=== PATIENT | male | born 1990 ===

== ENCOUNTER 2016-10-12 15:28 | Inpatient (IN) | payer OTHER ==
[2016-10-12] MEDS ORDERED: SODIUM CHLORIDE 0.9% 1000 ML INFUS.BAG IV ONE (16:02)
--- NOTE | 2016-10-12 16:05 | PDOC ---
History of Present Illness <TrinidadcelineDara - Last Filed: 10/12/16 16:02> - General History Source: Patient Exam Limitations: No Limitations - History of Present Illness Initial Comments: 10/12/16 16:05 The patient is a 26 year old male with no significant past medical history, presenting to the Emergency Department with lower abdominal pain for 2 days. The patient describes the pain as at his right lower quadrant, nonradiating and sharp, 7-8/10 in intensity. He reports that the pain began two days ago and has been persistent since onset. He denies previously having similar pain in his abdomen. He denies any recent trauma. He denies any symptoms other than the RLQ pain. The patient denies fevers, chills, and cough. Patient denies nausea, vomiting, and diarrhea. Patient denies testicular pain, and dysuria. Patient denies chest pain, palpitations, and shortness of breath. PCP: Dr. Holm <Love Esteban - Last Filed: 10/12/16 16:05> <Nicole Lujan - Last Filed: 10/12/16 19:58> - General Chief Complaint: Pain Stated Complaint: ABDOMINAL PAIN Past History - Psycho/Social/Smoking Cessation Hx Suicidal Ideation: No Smoking History: Never smoked Information on smoking cessation initiated: No <Dara Maxwell - Last Filed: 10/12/16 16:02> <Love Esteban - Last Filed: 10/12/16 16:05> <Nicole Lujan - Last Filed: 10/12/16 19:58> - Past Medical History Allergies/Adverse Reactions: Allergies Allergy/AdvReac Type Severity Reaction Status Date / Time No Known Allergies Allergy Verified 10/12/16 15:33 Home Medications: Ambulatory Orders NK [No Known Home Medication] 10/12/16 Review of Systems - Review of Systems Able to Perform ROS?: Yes Comments:: 10/12/16 16:06 CONSTITUTIONAL: Absent: fever, chills, diaphoresis, generalized weakness, malaise, loss of appetite HEENT: Absent: rhinorrhea, nasal congestion, throat pain, throat swelling, difficulty swallowing, mouth swelling, ear pain, eye pain, visual Changes CARDIOVASCULAR: Absent: chest pain, syncope, palpitations, irregular heart rate, lightheadedness , peripheral edema RESPIRATORY: Absent: cough, shortness of breath, dyspnea with exertion, orthopnea, wheezing, stridor, hemoptysis GASTROINTESTINAL: Present: + RLQ abdominal pain Absent: abdominal distension, nausea, vomiting, diarrhea, constipation, melena, hematochezia GENITOURINARY: Absent: dysuria, frequency, urgency, hesitancy, hematuria, flank pain, genital pain MUSCULOSKELETAL: Absent: myalgia, arthralgia, joint swelling SKIN: Absent: rash, itching, pallor HEMATOLOGIC/IMMUNOLOGIC: Absent: easy bleeding, easy bruising, lymphadenopathy, frequent infections ENDOCRINE: Absent: unexplained weight gain, unexplained weight loss, heat intolerance, cold intolerance NEUROLOGIC: Absent: headache, focal weakness or paresthesias, dizziness, unsteady gait, seizure, mental status changes, bladder or bowel incontinence PSYCHIATRIC: Absent: anxiety, depression, suicidal or homicidal ideation, hallucinations. <Love Esteban - Last Filed: 10/12/16 16:05> *Physical Exam - Vital Signs Last Vital Signs Temp Pulse Resp BP Pulse Ox 98 F 79 18 131/73 98 10/12/16 15:29 10/12/16 15:29 10/12/16 15:29 10/12/16 15:29 10/12/16 15:29 <Dara Maxwell - Last Filed: 10/12/16 16:02> - Vital Signs Last Vital Signs Temp Pulse Resp BP Pulse Ox 98 F 79 18 131/73 98 10/12/16 15:29 10/12/16 15:29 10/12/16 15:29 10/12/16 15:29 10/12/16 15:29 - Physical Exam Comments: 10/12/16 16:06 GENERAL: Well developed, well nourished. Awake and alert. In no acute distress. HEENT: Normocephalic, atraumatic. PERRLA, EOMI. No conjunctival pallor. Sclera are non- icteric. Moist mucous membranes. Oropharynx is clear. NECK: Supple. Full ROM. No JVD. Carotid pulses 2+ and symmetric, without bruits. No thyromegaly. No lymphadenopathy. CARDIOVASCULAR: Regular rate and rhythm. No murmurs, rubs, or gallops. Distal pulses are 2+ and symmetric. PULMONARY: No evidence of respiratory distress. Lungs clear to auscultation bilaterally. No wheezing, rales or rhonchi. ABDOMINAL: RLQ tenderness to palpation, no rebound, no guarding. No palpable hernia. Soft. Non-distended. No organomegaly. Normoactive bowel sounds. MUSCULOSKELETAL Normal range of motion at all joints. No bony deformities or tenderness. No CVA tenderness. EXTREMITIES: No cyanosis. No clubbing. No edema. No calf tenderness. SKIN: Warm and dry. Normal capillary refill. No rashes. No jaundice. NEUROLOGICAL: Alert, awake, appropriate. Cranial nerves 2-12 intact. No deficits to light touch and temperature in face, upper extremities and lower extremities. No motor deficits in the in face, upper extremities and lower extremities. Normoreflexic in the upper and lower extremities. Normal speech. Toes are downgoing bilaterally. PSYCHIATRIC: Cooperative. Good eye contact. Appropriate mood and affect. <Love Esteban - Last Filed: 10/12/16 16:05> - Vital Signs Last Vital Signs Temp Pulse Resp BP Pulse Ox 98 F 79 18 131/73 98 10/12/16 15:29 10/12/16 15:29 10/12/16 15:29 10/12/16 15:29 10/12/16 15:29 <Nicole Lujan - Last Filed: 10/12/16 19:58> ED Treatment Course - RADIOLOGY Radiology Studies Ordered: Category Date Time Status ABDOMEN & PELVIS CT WITH CONTR [CT] Stat CT Scan 10/12/16 16:02 Ordered <Dara Maxwell - Last Filed: 10/12/16 16:02> - LABORATORY CBC & Chemistry Diagram: 10/12/16 16:00 10/12/16 16:00 - ADDITIONAL ORDERS Additional order review: Laboratory Results 10/12/16 10/12/16 16:00 16:00 Sodium 139 Potassium 5.2 H Chloride 102 Carbon Dioxide 32 Anion Gap 5 L BUN 16 Creatinine 1.1 Creat Clearance w eGFR > 60 Random Glucose 84 Calcium 9.4 Total Bilirubin 0.8 AST 16 ALT 21 Alkaline Phosphatase 84 Total Protein 7.9 Albumin 4.3 Urine Color Yellow Urine Appearance Clear Urine pH 6.0 Urine Protein Negative Urine Glucose (UA) Negative Urine Ketones Negative Urine Blood Negative Urine Nitrite Negative Urine Bilirubin Negative Urine Urobilinogen Negative Ur Leukocyte Esterase Negative 10/12/16 16:00 RBC 5.29 MCV 83.7 MCHC 33.4 RDW 13.5 MPV 7.8 Neutrophils % 53.1 Lymphocytes % 33.7 Monocytes % 11.5 H Eosinophils % 1.1 Basophils % 0.6 - Medications Given in the ED: ED Medications Discontinued Medications Generic Name Dose Route Start Last Admin Trade Name Tejas PRN Reason Stop Dose Admin Sodium Chloride 1,000 ml 10/12/16 16:02 10/12/16 16:11 Normal Saline - IV 10/12/16 16:03 1,000 ml ONCE ONE Administration <Nicole Lujan - Last Filed: 10/12/16 19:58> Medical Decision Making - Medical Decision Making 10/12/16 16:02 26 yo male wtih no pmhx here wtih c/o lower abd pain. started 2 days ago. denies n/v no fever or chills. no testicular pain . no urinary complaints. no trauma. no mod factors. pain moderate 7 - 8 / 10. on exam mild RLQ TTP. no rebound no guard. skin warm and dry. differential uti, appendicitis, pyelo, epiploic apendigitis, muscle strain. <Dara Maxwell - Last Filed: 10/12/16 16:02> - Medical Decision Making 10/12/16 19:42 I received pt on signout and he has an appendicitis. He will be admitted. Patient Name: Huey Vizcarra THIS IS A PRELIMINARY REPORT FROM [facility] EXAM: CT abdomen and pelvis with intravenous and oral contrast IMAGES: 492 EXAM DATE AND TIME: 2016-10-12 18:43:04.0 REASON FOR EXAM: Right lower quadrant pain COMPARISON: None. FINDINGS: The visualized lung bases are clear The upper abdominal visceral organs are unremarkable Normal transit of contrast to the colon without bowel distention. The proximal to mid-appendix is normal in appearance. The mid to distal portion of the appendix is dilated measuring up to 1.2 cm in maximum diameter with mild periappendiceal inflammatory changes compatible with acute appendicitis. There is no evidence of appendiceal abscess. No free air or free fluid. THIS DOCUMENT HAS BEEN ELECTRONICALLY SIGNED <Nicole Lujan - Last Filed: 10/12/16 19:58> *DC/Admit/Observation/Transfer <Dara Maxwell - Last Filed: 10/12/16 16:02> - Attestations Scribe Attestion: 10/12/16 16:07 Documentation prepared by Love Esteban, acting as medical office secretary for Dara Maxwell MD. <Love Esteban - Last Filed: 10/12/16 16:05> - Discharge Dispostion Admit: Yes <Nicole Lujan - Last Filed: 10/12/16 19:58> Diagnosis at time of Disposition: Acute appendicitis - Discharge Dispostion Condition at time of disposition: Guarded - Referrals Referrals: Saida Holm [Primary Care Provider] -
[2016-10-12 16:17] LABS: BASOPHIL 0.6 % (0-2.0); EOSINOPHIL 1.1 % (0-4.5); MCH 27.9 pg (25.7-33.7); MCHC 33.4 g/dl (32.0-35.9); MEAN CELL VOLUME 83.7 fl (80-96); MEAN PLT VOLUME 7.8 fl (7.5-11.1); NEUTROPHILS 53.1 % (42.8-82.8); PLATELET COUNT 208 K/MM3 (134-434); RDW 13.5 % (11.9-15.9); WHITE BLOOD COUNT 6.9 K/mm3 (4.0-10.0)
[2016-10-12 16:31] LABS: URINE APPEARANCE CLEAR; URINE BILIRUBIN NEGATIVE (NEGATIVE); URINE BLOOD NEGATIVE (NEGATIVE); URINE COLOR YELLOW; URINE GLUCOSE (UA) NEGATIVE (NEGATIVE); URINE KETONE NEGATIVE (NEGATIVE); URINE LEUK ESTERASE NEGATIVE (NEGATIVE); URINE NITRITE NEGATIVE (NEGATIVE); URINE PROTEIN NEGATIVE (NEGATIVE); URINE UROBILINOGEN NEGATIVE E.U./dl (0.2-1.0)
[2016-10-12 16:48] LABS: ALBUMIN 4.3 g/dl (3.4-5.0); ANION GAP 5 (8-16); BILIRUBIN,TOTAL 0.8 mg/dL (0.2-1.0); CALCIUM 9.4 mg/dL (8.5-10.1); CO2 32 mmol/L (21-32); COCKROFT - GAULT 131.49; CREATININE 1.1 mg/dL (0.7-1.3); GLUCOSE,RANDOM 84 mg/dL (74-106); SGOT/AST 16 U/L (15-37); SGPT/ALT 21 U/L (12-78); TOT PROT 7.9 g/dl (6.4-8.2)
[2016-10-12 16:49] LABS: ALK PHOS 84 U/L (45-117)
[2016-10-12] MEDS ORDERED: PIPERACILLIN/TAZOB 3.375 GM 3.375 GM in DEXTROSE 5%-WATER - 50 ML IVPB ONE (19:43)
[2016-10-12] MEDS ORDERED: morphine CARPU-JECT 2 MG/1 ML DISP.SYRIN IVPUSH PRN (20:22)
[2016-10-12] MEDS ORDERED: ONDANSETRON 4 MG/2 ML VIAL IVPB PRN (20:22)
[2016-10-12] MEDS ORDERED: SODIUM CHLORIDE 1,000 ML IV SCH (20:30)
--- NOTE | 2016-10-12 21:10 | HP ---
CHIEF COMPLAINT: Abdominal Pain PCP: Dr Vesna Holm HISTORY OF PRESENT ILLNESS: 26 year old male with no significant pmh presented to the ED with complaint of abdominal pain for 2 days. The pain started 2 days ago suprapubic 7/10, sharp, constant and has been worsening. Pain was so severe last night that patient is unable to sleep. Now the pain is located in right inguinal region and 7/10. No fever or chills, no n/v, no dizziness or confusion, no dysuria, no diarrhea or constipation, No abdominal trauma. last bowel movement was 2 days ago, it was soft, no ER course was notable for: (1) CT abdomen and pelvis showed acute non perforated appendicitis (2) CBC, CMP, Lipase (3) Recent Travel: none PAST MEDICAL HISTORY: none PAST SURGICAL HISTORY: Nose surgery as a child Social History: Smoking:none Alcohol:none Drugs: none Family History: Non contributory Allergies No Known Allergies Allergy (Verified 10/12/16 15:33) HOME MEDICATIONS: Home Medications Medication Instructions Recorded NK [No Known Home Medication] 10/12/16 REVIEW OF SYSTEMS CONSTITUTIONAL: Absent: fever, chills, diaphoresis, generalized weakness, malaise, loss of appetite, weight change HEENT: Absent: rhinorrhea, nasal congestion, throat pain, throat swelling, difficulty swallowing, mouth swelling, ear pain, eye pain, visual changes CARDIOVASCULAR: Absent: chest pain, syncope, palpitations, irregular heart rate, lightheadedness , peripheral edema RESPIRATORY: Absent: cough, shortness of breath, dyspnea with exertion, orthopnea, wheezing, stridor, hemoptysis GASTROINTESTINAL:abdominal pain, Absent: abdominal distension, nausea, vomiting, diarrhea, constipation, melena, hematochezia GENITOURINARY: Absent: dysuria, frequency, urgency, hesitancy, hematuria, flank pain, genital pain MUSCULOSKELETAL: Absent: myalgia, arthralgia, joint swelling, back pain, neck pain SKIN: Absent: rash, itching, pallor HEMATOLOGIC/IMMUNOLOGIC: Absent: easy bleeding, easy bruising, lymphadenopathy, frequent infections ENDOCRINE: Absent: unexplained weight gain, unexplained weight loss, heat intolerance, cold intolerance NEUROLOGIC: Absent: headache, focal weakness or paresthesias, dizziness, unsteady gait, seizure, mental status changes, bladder or bowel incontinence PSYCHIATRIC: Absent: anxiety, depression, suicidal or homicidal ideation, hallucinations. PHYSICAL EXAMINATION GENERAL: Awake, alert, and fully oriented, in no acute distress. HEAD: Normal with no signs of trauma. EYES: Pupils equal, round and reactive to light, extraocular movements intact, sclera anicteric, conjunctiva clear. No lid lag. EARS, NOSE, THROAT: Ears normal, nares patent, oropharynx clear without exudates. Moist mucous membranes. NECK: Normal range of motion, supple without lymphadenopathy, JVD, or masses. LUNGS: Breath sounds equal, clear to auscultation bilaterally. No wheezes, and no crackles. No accessory muscle use. HEART: Regular rate and rhythm, normal S1 and S2 without murmur, rub or gallop. ABDOMEN: Soft, right inguinal and suprapubic tenderness, positive rovsing sign. not distended, normoactive bowel sounds, no guarding, no rigidity. no rebound, no masses. No hepatomegaly or splenomegaly. MUSCULOSKELETAL: Normal range of motion at all joints. No bony deformities or tenderness. No CVA tenderness. UPPER EXTREMITIES: 2+ pulses, warm, well-perfused. No cyanosis. No clubbing. No peripheral edema. LOWER EXTREMITIES: 2+ pulses, warm, well-perfused. No calf tenderness. No peripheral edema. NEUROLOGICAL: Cranial nerves II-XII intact. Normal speech. Normal gait. PSYCHIATRIC: Cooperative. Good eye contact. Appropriate mood and affect. SKIN: Warm, dry, normal turgor, no rashes or lesions noted, normal capillary refill. CBC, BMP 10/12/16 16:00 10/12/16 16:00 ASSESSMENT/PLAN: 26 year old male with no significant pmh presented to the ED with complaint of abdominal pain for 2 days. Pt was found to have acute appendicitis on CT abdomen and pelvis. Acute Appendicitis Suprapubic pain, No fever, chill, no n/v, positive rovsing sign CT abdomen showed acute appendicitis without perforation UA negative NPO after midnight Vitals q4h type and screen CBC BMP in am Coag received zosyn in ED Start pt on Ciprofloxacin 400mg IV Consider continuing Cipro vs switching to Levaquin since Cipro require ID consult Start Flagyl 500 IV q8h Consult surgery Dr Kimberly HERNANDEZ Fluid: NS at 100ml/h Electrolytes: K 5.2, will repeat in am Nutrition: regular diet, NPO after midnight DVT: SCD Disposition: Ad[facility] pending consultation Surgery Visit type - Emergency Visit Emergency Visit: Yes ED Registration Date: 10/12/16 Care time: The patient presented to the Emergency Department on the above date and was hospitalized for further evaluation of their emergent condition. - New Patient This patient is new to me today: Yes Date on this admission: 10/13/16 - Critical Care Critical Care patient: No
--- NOTE | 2016-10-12 22:22 | PN ---
<Ambrosio Fulton - Last Filed: 10/12/16 22:22> Teaching Attending Note Name of Resident: Seven Forrest ATTENDING PHYSICIAN STATEMENT I saw and evaluated the patient. I reviewed the resident's note and discussed the case with the resident. I agree with the resident's findings and plan as documented. SUBJECTIVE: OBJECTIVE: ASSESSMENT AND PLAN: <MasterVaishali gardinerketty Wane - Last Filed: 10/12/16 22:28> Teaching Attending Note Name of Resident: Seven Forrest ATTENDING PHYSICIAN STATEMENT I saw and evaluated the patient. I reviewed the resident's note and discussed the case with the resident. I agree with the resident's findings and plan as documented. SUBJECTIVE: 26 year old male, with no significant past medical history, who presents to the ED with abdominal pain for the past 2 days. He notes that the pain began in the suprapubic region, rating it a 8/10 in severity, with radiation to the right lower quadrant. He denies fever, chills, nausea, vomit, diarrhea or constipation. OBJECTIVE: GENERAL: Awake, alert, and fully oriented, in no acute distress HEENT: Atraumatic. PERRLA, EOMI. Moist mucosa. No JVD LUNGS: No distress, speaks full sentences, clear to auscultation bilaterally HEART: Regular rate and rhythm, normal S1 and S2, no murmurs, rubs or gallops, peripheral pulses normal and equal bilaterally. ABDOMEN: Soft, (+) Decreased bowel sounds. Mild tenderness to palpation diffusely. No guarding, no rebound. No masses. EXTREMITIES: Normal inspection, Normal range of motion, no edema. No clubbing or cyanosis. NEUROLOGICAL: Cranial nerves II through XII grossly intact. Normal speech, normal gait, no focal sensorimotor deficits SKIN: Warm, Dry, normal turgor, no rashes or lesions noted. CBCD WBC 6.9 K/mm3 (4.0-10.0) 10/12/16 16:00 RBC 5.29 M/mm3 (4.00-5.60) 10/12/16 16:00 Hgb 14.8 GM/dL (11.7-16.9) 10/12/16 16:00 Hct 44.3 % (35.4-49) 10/12/16 16:00 MCV 83.7 fl (80-96) 10/12/16 16:00 MCHC 33.4 g/dl (32.0-35.9) 10/12/16 16:00 RDW 13.5 % (11.9-15.9) 10/12/16 16:00 Plt Count 208 K/MM3 (134-434) 10/12/16 16:00 MPV 7.8 fl (7.5-11.1) 10/12/16 16:00 CMP Sodium 139 mmol/L (136-145) 10/12/16 16:00 Potassium 5.2 mmol/L (3.5-5.1) H 10/12/16 16:00 Chloride 102 mmol/L (98-107) 10/12/16 16:00 Carbon Dioxide 32 mmol/L (21-32) 10/12/16 16:00 Anion Gap 5 (8-16) L 10/12/16 16:00 BUN 16 mg/dL (7-18) 10/12/16 16:00 Creatinine 1.1 mg/dL (0.7-1.3) 10/12/16 16:00 Creat Clearance w eGFR > 60 (>60) 10/12/16 16:00 Calcium 9.4 mg/dL (8.5-10.1) 10/12/16 16:00 Total Bilirubin 0.8 mg/dL (0.2-1.0) 10/12/16 16:00 AST 16 U/L (15-37) 10/12/16 16:00 ALT 21 U/L (12-78) 10/12/16 16:00 Alkaline Phosphatase 84 U/L (45-117) 10/12/16 16:00 Total Protein 7.9 g/dl (6.4-8.2) 10/12/16 16:00 Albumin 4.3 g/dl (3.4-5.0) 10/12/16 16:00 CT abdomen and pelvis with contrast Impression: The upper abdominal visceral organs are unremarkable Normal transit of contrast to the colon without bowel distention. The proximal to mid- appendix is normal in appearance. The mid to distal portion of the appendix is dilated measuring up to 1.2 cm in maximum diameter with mild periappendiceal inflammatory changes compatible - with acute appendicitis. There is no evidence of appendiceal abscess. No free air or free fluid ASSESSMENT AND PLAN 1. Mild Appendicitis evident on CT scan of abdomen with no signs of systemic infection. Dr. Miguel Harris was contacted and is aware of the case. - Blood cultures x2. - ciprofloxacin 400 mg IV Q12 - Flagyl 500 mg IV Q8 - IVF hydration - Morphine 2 mg IV Q4 PRN for pain control. - NPO past midnight for possible surgical intervention - Surgery consult DVT prophylaxes - SCDs Documentation prepared by Carl Vaughan, acting as medical technologist prn for Ambrosio Fulton MD.
[2016-10-13 00:05] VITALS: BMI 26.0
[2016-10-13] MEDS: METRONIDAZOLE 500 MG PREMIXED 100 ML IVPB SCH ×3 (01:39→17:27)
[2016-10-13] MEDS ORDERED: CIPROFLOXACIN 400 MG/D5W 200 ML IVPB ONE (02:00)
[2016-10-13 07:45] LABS: MCH 28.2 pg (25.7-33.7); MCHC 33.6 g/dl (32.0-35.9); MEAN CELL VOLUME 83.9 fl (80-96); MEAN PLT VOLUME 7.7 fl (7.5-11.1); PLATELET COUNT 182 K/MM3 (134-434); RDW 13.4 % (11.9-15.9); WHITE BLOOD COUNT 5.1 K/mm3 (4.0-10.0)
[2016-10-13 07:53] LABS: INR 1.23 (0.82-1.09); PROTHROMBIN TIME (PATIENT) 13.6 SEC (9.98-11.88)
[2016-10-13 07:56] LABS: ACTIVATED PTT 32.6 SECONDS (26.9-34.4)
[2016-10-13 08:18] LABS: CALCIUM 8.7 mg/dL (8.5-10.1)
[2016-10-13 08:19] LABS: COCKROFT - GAULT 154.64; CREATININE 0.9 mg/dL (0.7-1.3)
[2016-10-13] MEDS ORDERED: SUCCINYLCHOLINE CHLORIDE 200 MG/10 ML VIAL ONE (09:26)
[2016-10-13] MEDS ORDERED: LIDOCAINE HCL/PF 2% SDV 5ML VIAL ONE (09:27)
[2016-10-13] MEDS ORDERED: ROCURONIUM BROMIDE 50 MG/5 ML VIAL ONE (09:28)
[2016-10-13] MEDS ORDERED: ceFAZolin SODIUM 1 GM VIAL IVPB ONE (09:39)
[2016-10-13] MEDS ORDERED: ceFAZolin SODIUM 1 GM VIAL ONE (09:47)
[2016-10-13] MEDS ORDERED: DEXAMETHASONE SOD PHOSPHATE 4 MG/1 ML VIAL ONE (09:47)
[2016-10-13] MEDS ORDERED: ONDANSETRON 4 MG/2 ML VIAL ONE (09:47)
[2016-10-13] MEDS ORDERED: KETOROLAC TROMETHAMINE 30 MG/1 ML VIAL ONE (09:47)
[2016-10-13] MEDS ORDERED: NEOSTIGMINE METHYLSULFATE 0.5 MG/ML - 10 ML MDV ONE (09:48)
[2016-10-13] MEDS ORDERED: GLYCOPYRROLATE 0.2 MG/1 ML VIAL ONE ×2 (09:49)
[2016-10-13] MEDS ORDERED: BUPIVACAINE HCL/PF 0.5% (5MG/ML) 10 ML VIAL IJ ONE (10:15)
[2016-10-13] MEDS ORDERED: ONDANSETRON 4 MG/2 ML VIAL IVPUSH PRN (10:28)
[2016-10-13] MEDS ORDERED: oxyCODONE HCL 5 MG TABLET PO PRN ×2 (10:28→11:35)
[2016-10-13] MEDS ORDERED: PROMETHAZINE HCL 25 MG/1 ML VIAL IVPUSH PRN (10:28)
--- NOTE | 2016-10-13 10:30 | CONSULT ---
Consult Consult Specialty:: Surgery Reason for Consultation:: Acute appendicitis - History of Present Illness History of Present Illness: 26 male present for RLQ pain x 1 day No fevers/chills No nausea/vomiting + Acute appendicitis on CT - History Source History Provided By: Patient, Medical Record Limitations to Obtaining History: No Limitations - Alcohol/Substance Use Hx Alcohol Use: No - Smoking History Smoking history: Never smoked Home Medications - Allergies Allergies/Adverse Reactions: Allergies Allergy/AdvReac Type Severity Reaction Status Date / Time No Known Allergies Allergy Verified 10/12/16 15:33 - Home Medications Home Medications: Ambulatory Orders NK [No Known Home Medication] 10/12/16 Family Disease History - Family Disease History Family History: Unremarkable Review of Systems - Review of Systems Constitutional: denies: Chills, Fever HENT: reports: No Symptoms Neck: reports: No Symptoms Cardiovascular: denies: Chest Pain Respiratory: denies: Cough Gastrointestinal: reports: Abdominal Pain. denies: Diarrhea, Vomiting Genitourinary: reports: No Symptoms Neurological: denies: Change in LOC Pain Intensity: 5 Physical Exam Vital Signs: Vital Signs Temperature 98.3 F 10/13/16 09:06 Pulse Rate 88 10/13/16 09:06 Respiratory Rate 20 10/13/16 09:06 Blood Pressure 95/50 10/13/16 09:06 O2 Sat by Pulse Oximetry (%) 98 10/12/16 22:00 Constitutional: Yes: Calm HENT: Yes: WNL Neck: Yes: Supple Cardiovascular: Yes: Regular Rate and Rhythm Respiratory: Yes: CTA Bilaterally Gastrointestinal: Yes: Soft, Tenderness (RLQ), Tenderness, Rebound (RLQ- with guarding). No: Distention Extremities: Yes: WNL Neurological: Yes: Alert, Oriented Labs: CBC, BMP 10/13/16 06:00 10/13/16 06:00 Imaging - Results Cat Scan: Report Reviewed, Image Reviewed Problem List - Problems (1) Acute appendicitis Code(s): K35.80 - UNSPECIFIED ACUTE APPENDICITIS Qualifiers: Acute appendicitis type: with localized peritonitis Qualified Code(s ): K35.3 - Acute appendicitis with localized peritonitis Assessment/Plan 26 male with acute appendicitis NPO IV fluids Antibiotics Laparoscopic appendectomy possible open Risks and benefits ecplained Understands and agrees
--- NOTE | 2016-10-13 10:33 | PN ---
Physical Exam: SUBJECTIVE: Patient seen and examined. He complains of RLQ pain. OBJECTIVE: Vital Signs Period Temp Pulse Resp BP Sys/Holm Pulse Ox Last 24 Hr 97.9 F-98.3 F 69-88 17-20 95-129/50-72 98-99 GENERAL: The patient is awake, alert, and fully oriented, in no acute distress. LUNGS: Breath sounds equal, clear to auscultation bilaterally, no wheezes, no crackles, no accessory muscle use. HEART: Regular rate and rhythm, S1, S2 without murmur, rub or gallop. ABDOMEN: Soft, (+) RLQ tenderness with rebound and guarding, nondistended, normoactive bowel sounds, no hepatosplenomegaly, no masses. EXTREMITIES: 2+ pulses, warm, well-perfused, no edema. Laboratory Results - last 24 hr 10/13/16 10/13/16 10/13/16 06:00 06:00 06:00 WBC 5.1 RBC 5.08 Hgb 14.3 Hct 42.7 MCV 83.9 MCHC 33.6 RDW 13.4 Plt Count 182 MPV 7.7 INR PTT (Actin FS) Sodium 141 Potassium 4.1 D Chloride 103 Carbon Dioxide 29 Anion Gap 9 BUN 13 Creatinine 0.9 Random Glucose 81 Calcium 8.7 Blood Type B POSITIVE Antibody Screen Negative 10/13/16 06:00 WBC RBC Hgb Hct MCV MCHC RDW Plt Count MPV INR 1.23 H PTT (Actin FS) 32.6 Sodium Potassium Chloride Carbon Dioxide Anion Gap BUN Creatinine Random Glucose Calcium Blood Type Antibody Screen Active Medications Generic Name Dose Route Start Last Admin Trade Name Tejas PRN Reason Stop Dose Admin Fentanyl 50 mcg 10/13/16 10:28 Sublimaze Injection - IVPUSH 10/16/16 10:29 [id number] PRN PAIN Sodium Chloride 1,000 mls @ 100 mls/hr 10/12/16 20:30 Normal Saline - IV ASDIR LIU Metronidazole 100 mls @ 100 mls/hr 10/13/16 02:00 10/13/16 09:30 Flagyl 500mg Premixed Ivpb - IVPB Not Given Q8H-IV LIU Morphine Sulfate 2 mg 10/12/16 20:22 10/13/16 02:52 Morphine Injection - IVPUSH 2 mg Q4H PRN Administration PAIN Ondansetron HCl 4 mg 10/12/16 20:22 Zofran Injection IVPB Q6H PRN NAUSEA Ondansetron HCl 4 mg 10/13/16 10:28 Zofran Injection IVPUSH 10/13/16 16:29 Q6H PRN NAUSEA AND/OR VOMITING Oxycodone HCl 10 mg 10/13/16 10:28 Roxicodone - PO 10/14/16 10:27 Q4H PRN SEVERE PAIN Promethazine HCl 12.5 mg 10/13/16 10:28 Phenergan Injection - IVPUSH 10/13/16 16:29 Q6H PRN NAUSEA ASSESSMENT/PLAN: This is a 26-year-old man with no significant history who presented to the ER with abdominal pain. 1. Acute appendicitis - Given Cipro, Flagyl - Continue NPO, IVF, morphine for pain control - Surgery consult 2. Hyperkalemia, mild - Improved with IV fluid Visit type - Emergency Visit Emergency Visit: Yes ED Registration Date: 10/12/16 Care time: The patient presented to the Emergency Department on the above date and was hospitalized for further evaluation of their emergent condition. - New Patient This patient is new to me today: Yes Date on this admission: 10/13/16 - Critical Care Critical Care patient: No - Discharge Referral Referred to [facility] Med [facility] No
[2016-10-13] MEDS ORDERED: HYDROmorphone HCL CARPU-JECT 1 MG/1 ML DISP.SYRIN IVPB PRN (10:44)
[2016-10-13] MEDS ORDERED: OXYCODONE/APAP 5/325MG COMBO TABLET PO PRN (10:44)
[2016-10-13] MEDS ORDERED: SODIUM CHLORIDE 1,000 ML IV SCH (10:56)
[2016-10-13] MEDS ORDERED: ONDANSETRON 4 MG/2 ML VIAL IVPB PRN (10:56)
[2016-10-13] MEDS ORDERED: morphine CARPU-JECT 2 MG/1 ML DISP.SYRIN IVPUSH PRN (10:56)
[2016-10-13] MEDS ORDERED: ACETAMINOPHEN 325 MG TABLET (FP) PO PRN (11:35)
--- NOTE | 2016-10-13 11:37 | SPEC ---
DATE OF OPERATION: 10/13/2016 SURGEON: Vicki Harris MD PREOPERATIVE DIAGNOSIS: Acute appendicitis. POSTOPERATIVE DIAGNOSIS: Acute appendicitis. PROCEDURE: Laparoscopic appendectomy. SPECIMEN: Appendix. ESTIMATED BLOOD LOSS: 5 mL. DRAINS: None. ANESTHESIA: GET. REASON FOR PROCEDURE: This is a 26-year-old gentleman who presents to the hospital with right lower quadrant pain. On imaging, he was found to have evidence of acute appendicitis. Because of this, he was consented for a laparoscopic, possible open appendectomy. RISKS AND BENEFITS: The risks and benefits were explained for a laparoscopic, possible open appendectomy. These included bleeding, infection, hernia, PR, DVT, PE, injury to surrounding structures including the liver, colon, bowel, bladder, ureter, vessel injury, nerve injury, abscess formation, staple line leak, staple line dehiscence as some of the possible complications. The patient understood and signed informed consent. DESCRIPTION OF PROCEDURE: The patient was placed supine on the operating room table. The patient underwent general endotracheal intubation. A Smith catheter was inserted by the nursing staff. The abdomen was prepped and draped in the usual sterile fashion. A timeout was performed. A periumbilical incision was made and a 5-mm optical trocar was inserted under direct visualization with the laparoscope. Pneumoperitoneum was then established. Subsequently, a 5-mm trocar was placed in the suprapubic area and a 12-mm trocar placed in the left lower quadrant. The patient was placed in Trendelenburg right side up position. After meticulous dissection, the appendix was identified. The appendix was freed from its surrounding structures and the appendix was retracted to the anterior abdominal wall. The base of the appendix was identified. A window was created within the mesentery near the base of the appendix. The appendix at its base was stapled using a laparoscopic Endo-MAGDALENE stapler with a white load. The mesoappendix was then transected using a laparoscopic Endo-MAGDALENE stapler with a white load. The appendix was placed in an EndoCatch bag. Inspection of both staple lines was identified. The staple line at the base of the appendix was noted to be fully intact. Hemostasis was noted at the staple line of the mesoappendix. Copious irrigation and suction was performed. The appendix was removed from the abdominal cavity and sent off the operative field as specimen. The patient was then placed in left side up position. The 12-mm trocar was removed. The fascia at this site was closed using a 0 Vicryl suture with a Geoffrey-Rohit device. The patient was then placed supine. Pneumoperitoneum was desufflated and all further trocars were removed. All incision sites were irrigated and Marcaine was injected at all incision sites. The fascial suture was secured. All incision sites were closed using 4-0 Biosyn. Sterile dressings were applied. The patient tolerated the procedure well. The Smith catheter was removed and the patient was transferred to the recovery room in stable condition. VICKI HARRIS M.D. CRISTIN/[id number]
[2016-10-13] MEDS: oxyCODONE HCL 5 MG TABLET PO PRN (17:36)
[2016-10-14] MEDS: METRONIDAZOLE 500 MG PREMIXED 100 ML IVPB SCH ×2 (02:49→11:00)
[2016-10-14] MEDS: oxyCODONE HCL 5 MG TABLET PO PRN ×2 (05:14→09:33)
[2016-10-14 07:48] LABS: BASOPHIL 0.4 % (0-2.0); EOSINOPHIL 2.2 % (0-4.5); MCH 26.2 pg (25.7-33.7); MCHC 31.6 g/dl (32.0-35.9); MEAN CELL VOLUME 83.1 fl (80-96); MEAN PLT VOLUME 8.8 fl (7.5-11.1); NEUTROPHILS 65.6 % (42.8-82.8); PLATELET COUNT 127 K/MM3 (134-434); RDW 24.3 % (11.9-15.9); WHITE BLOOD COUNT 5.7 K/mm3 (4.0-10.0)
[2016-10-14 08:10] LABS: CALCIUM 8.3 mg/dL (8.5-10.1); COCKROFT - GAULT 107.05; CREATININE 1.3 mg/dL (0.7-1.3)
--- NOTE | 2016-10-14 09:43 | EKG ---
Test Reason : Blood Pressure : / mmHG Vent. Rate : 065 BPM Atrial Rate : 065 BPM P-R Int : 206 ms QRS Dur : 092 ms QT Int : 420 ms P-R-T Axes : 077 086 053 degrees QTc Int : 436 ms NORMAL SINUS RHYTHM WITH 1ST DEGREE A-V BLOCK POSSIBLE LEFT ATRIAL ENLARGEMENT EARLY REPOLARIZATION BORDERLINE ECG NO PREVIOUS ECGS AVAILABLE Confirmed by RORO BLUM MD ([id number]) on 10/14/2016 9:43:12 AM Referred By: Confirmed By:RORO BLUM MD
[2016-10-14] MEDS ORDERED: LEVOFLOXACIN 500 MG IVPB 100 ML IVPB SCH (10:00)
--- NOTE | 2016-10-14 11:41 | PN ---
Progress Note (short form) - Note Progress Note: ANESTHESIOLOGY POST-OP CHECK 26M s/p lap appendectomy under general anesthesia POD #1. No acute complaints. Tolerating PO, ambulating, voiding. Denies N/V, pain 4-5/10 and tolerable. Vital Signs Temperature 97.9 F 10/14/16 09:42 Pulse Rate 67 10/14/16 09:42 Respiratory Rate 16 10/14/16 09:42 Blood Pressure 123/63 10/14/16 09:42 O2 Sat by Pulse Oximetry (%) 100 10/13/16 11:59 Active Medications Acetaminophen (Tylenol -) 650 mg PO Q4H PRN PRN Reason: PAIN Stop: 10/16/16 11:34 Last Admin: 10/14/16 11:26 Dose: 650 mg Hydromorphone HCl (Dilaudid Injection -) 1 mg IVPB Q4H PRN PRN Reason: PAIN Levofloxacin (Levaquin 500 Mg Premixed Ivpb -) 100 mls @ 100 mls/hr IVPB DAILY LIU Last Admin: 10/14/16 09:35 Dose: 100 mls/hr Metronidazole (Flagyl 500mg Premixed Ivpb -) 100 mls @ 100 mls/hr IVPB Q8H-IV LIU Last Admin: 10/14/16 11:00 Dose: 100 mls/hr Morphine Sulfate (Morphine Injection -) 2 mg IVPUSH Q4H PRN PRN Reason: PAIN Last Admin: 10/13/16 15:01 Dose: 2 mg Ondansetron HCl (Zofran Injection) 4 mg IVPB Q6H PRN PRN Reason: NAUSEA Last Admin: 10/13/16 15:06 Dose: 4 mg Oxycodone HCl (Roxicodone -) 10 mg PO Q4H PRN PRN Reason: PAIN LEVEL 6-10 Gen: Awake, alert No apparent anesthesia complications. Pain controlled. Continue management as per primary team.
[2016-10-14 12:04] LABS: ANISOCYTOSIS 2+; HYPOCHROMIA 1+; MICROCYTOSIS FEW
--- NOTE | 2016-10-14 12:44 | DS ---
Physical Exam: SUBJECTIVE: Patient seen and examined. He complains of tenderness around left- side incision. OBJECTIVE: Vital Signs Period Temp Pulse Resp BP Sys/Holm Pulse Ox Last 24 Hr 97.8 F-99.0 F 67-89 16-20 111-128/46-73 98 PHYSICAL EXAM GENERAL: The patient is awake, alert, and fully oriented, in no acute distress. LUNGS: Breath sounds equal, clear to auscultation bilaterally, no wheezes, no crackles, no accessory muscle use. HEART: Regular rate and rhythm, S1, S2 without murmur, rub or gallop. ABDOMEN: Soft, nontender, nondistended, normoactive bowel sounds, no guarding, no rebound, no hepatosplenomegaly, no masses. Incisions clean. EXTREMITIES: 2+ pulses, warm, well-perfused, no edema. LABS Laboratory Results - last 24 hr 10/14/16 10/14/16 06:00 06:00 WBC 5.7 RBC 3.61 L D Hgb 9.5 L D Hct 30.0 L D MCV 83.1 MCHC 31.6 L RDW 24.3 H D Plt Count 127 L D MPV 8.8 D Neutrophils % 65.6 D Lymphocytes % 17.4 D Monocytes % 14.4 H Eosinophils % 2.2 D Basophils % 0.4 Hypochromic-Microcytic 1+ Anisocytosis 2+ Microcytosis Few Sodium 142 Potassium 4.1 Chloride 105 Carbon Dioxide 31 Anion Gap 6 L BUN 24 H D Creatinine 1.3 D Random Glucose 49 L* D Calcium 8.3 L HOSPITAL COURSE: Date of Admission:10/12/16 Date of Discharge: 10/14/16 Minutes to complete discharge: 30 Discharge Summary Reason For Visit: ACUTE APPENDICITIS Current Active Problems Acute appendicitis (Acute) Hospital Course: This is a 26-year-old healthy man who presented to the ER on 10/12/16 complaining of abdominal pain for 2 days. The pain started in the suprapubic area. It worsened and moved to the right inguinal area. He denied fever, chills , nausea, vomiting, diarrhea, constipation. His last bowel movement was 2 days prior to presentation. In the ER, he was afebrile and there was tenderness to palpation in the suprapubic and RLQ areas. WBC was normal. Potassium was 5.2. CT showed acute appendicitis without perforation. He was treated with Zosyn in the ER. He was admitted, given Cipro and Flagyl. He was kept NPO and treated with IV fluid and morphine as needed. Potassium improved. He was seen by Dr. Harris and underwent laparoscopic appendectomy on 10/13/16. The surgery went well. He is being discharged home on 10/14/16. Condition: Improved - Instructions Referrals: Saida Holm [Primary Care Provider] - Disposition: HOME - Home Medications Comprehensive Discharge Medication List: Ambulatory Orders Docusate Sodium [Colace -] 100 mg PO TID #90 capsule 10/13/16 Oxycodone HCl/Acetaminophen [Percocet 5-325 mg Tablet] 1 tab PO Q6H PRN #28 tab MDD 4 10/14/16 Problem List - Problems (1) Acute appendicitis Code(s): K35.80 - UNSPECIFIED ACUTE APPENDICITIS Qualifiers: Acute appendicitis type: with localized peritonitis Qualified Code(s ): K35.3 - Acute appendicitis with localized peritonitis This patient is new to me today: No Emergency Visit: Yes ED Registration Date: 10/12/16 Care time: The patient presented to the Emergency Department on the above date and was hospitalized for further evaluation of their emergent condition. Critical Care patient: No - Discharge Referral Referred to [facility] Med P.C.: No
[2016-10-14 14:05] VITALS: BP 120/64; PULSE 68; TEMP 98
--- NOTE | 2016-10-16 11:42 | PATH ---
Surgical Pathology Report Patient Name: SILVESTRE FLOWERS Med. Rec. #: [id number] /Age/Gender: 1990 (Age: 26) / M Account: [id number] Location: [facility] MED/SURG Taken: 10/11/2016 Received: 10/15/2016 Reported: 10/16/2016 Physicians: Miguel Harris M.D. Specimen(s) Received APPENDIX Clinical History Acute appendicitis Final Diagnosis APPENDIX, APPENDECTOMY: ACUTE APPENDICITIS AND FOCAL PERIAPPENDICITIS. Electronically Signed Antonio George M.D. Gross Description Received in formalin, labeled "appendix" is a 6.0 cm in length vermiform appendix with a stapled margin of resection and moderate attached fat. The serosa is -holbrook with attached exudate. Sectioning reveals a focally hemorrhagic lumen. The wall of the appendix averages 0.1 cm in thickness. Wellness Nurse sections are submitted in one cassette. /10/15/2016 saudi/10/15/2016
== END 2016-10-14 14:00 | disposition home or self-care (01) | DRG 225 ==
LOC: JER 15:28 → JERBED 19:53 → UNDOADMIN 19:58 → JERBED 19:58 → J7W 21:47
PROVIDERS: ADMIT Internal Medicine; ATTEND Internal Medicine
PROC: 0DTJ4ZZ Resection of Appendix, Percutaneous Endoscopic Approach (ICD-10-PCS; principal; 2016-10-13 09:00)
DX: K35.80 Unspecified acute appendicitis (principal); E87.5 Hyperkalemia
CPT/HCPCS: 36415; 74177-TC; 80048; 80053; 81003; 85025; 85027; 85610; 85730; 86850; 86900; 86901; 88304-TC; 93005; 93010; 94760; 99285-25